=== PATIENT | female | born 1995 | race Caucasian/White ===

== ENCOUNTER 2016-05-29 16:15 | Emergency (ER) | payer OTHER ==
[~2016-05-29] VITALS: Ht 167.6 cm; Wt 51.9 kg
[2016-05-29 16:22] VITALS: Ht 167.6 cm; Wt 51.9 kg
[2016-05-29] MEDS ORDERED: SODIUM CHLORIDE 0.9% 1000ML 1,000 ML IV STA (16:30)
[2016-05-29 16:37] VITALS: O2SAT 98
[2016-05-29 16:43] VITALS: TEMP 37.1
--- NOTE | 2016-05-29 16:46 | DIAGNOSTIC IMAGING REPORT ---
HEAD CT NONCONTRAST CT DOSE: 537.48 mGy.cm HISTORY: Seizure. Evaluate Fever/Sepsis TECHNIQUE: Multiaxial CT images of the head were performed without the use of intravenous contrast. Automated exposure control was utilized for this study. Comparison: None. Findings: The paranasal sinuses and mastoid air cells are clear. The calvarium and skull base are intact. The ventricles and sulci are within normal limits. There is no mass, hematoma, midline shift, or acute infarct. Mild left parietal scalp swelling. Impression: No acute intracranial abnormality. Electronically signed by: Benjamin Ni M.D. 05/29/2016 4:44 PM Dictated Date/Time: 05/29/2016 4:39 PM
[2016-05-29 17:01] LABS: BASO % 0.6 %; BASO ABS # 0.05 K/uL (0-0.2); COMPLETE YES; EOS % 4.2 %; HEMATOCRIT 41.4 % (37-47); IG% 0.2 %; LYMPH ABS # 3.24 K/uL (1.2-3.4); MEAN CELL VOLUME 89.4 fL (80-100); MEAN CORPUSCULAR HEMOGLOBIN 29.2 pg (25-34); MEAN CORPUSCULAR HGB CONC 32.6 g/dl (32-36); MEAN PLATELET VOLUME 10.8 fL (7.4-10.4); MONO % 6.2 %; NEUT % 52.8 %; PLATELET COUNT 244 K/uL (130-400); RED BLOOD COUNT 4.63 M/uL (4.2-5.4)
[2016-05-29 17:10] LABS: ALT/SGPT 18 U/L (12-78); AST/SGOT 13 U/L (15-37); BLOOD UREA NITROGEN 10 mg/dl (7-18); CALCIUM 8.7 mg/dl (8.5-10.1); CARBON DIOXIDE 18 mmol/L (21-32); CHLORIDE 109 mmol/L (98-107); CREATININE 0.95 mg/dl (0.60-1.20); GLUCOSE 108 mg/dl (70-99); POTASSIUM 3.5 mmol/L (3.5-5.1); SODIUM 142 mmol/L (136-145)
[2016-05-29 17:17] LABS: PROTHROMBIN TIME (PATIENT) 10.5 SECONDS (9.0-12.0)
[2016-05-29 17:18] LABS: ALKALINE PHOSPHATASE 57 U/L (45-117); C-REACTIVE PROTEIN < 0.29 mg/dl (0-0.29)
[2016-05-29 17:23] LABS: ACETAMINOPHEN < 2 ug/ml (10-30)
[2016-05-29] MEDS ORDERED: ONDANSETRON INJ 2 MG/ML 2 ML VIAL ONE (17:24)
[2016-05-29] MEDS ORDERED: NURSING VERBAL MED ORDER ONE (17:30)
[2016-05-29] MEDS ORDERED: PROCHLORPERAZINE 5 MG/ML 2 ML VIAL IV STA (17:42)
[2016-05-29 17:52] LABS: URINE APPEARANCE CLOUDY (CLEAR); URINE BILIRUBIN NEG (NEG); URINE COLOR YELLOW; URINE EPITHELIAL CELL AUTO >30 /lpf (0-5); URINE NITRITE NEG (NEG); URINE PH 5.5 (4.5-7.5); URINE SPECIFIC GRAVITY 1.016 (1.000-1.030); UROBILINOGEN NEG (NEG); ZZURINE CULT IF INDIC CATH YES
--- NOTE | 2016-05-29 18:00 | DIAGNOSTIC IMAGING REPORT ---
CHEST ONE VIEW PORTABLE HISTORY: Evaluate Fever/Sepsis COMPARISON: None. FINDINGS: The patient is slightly rotated on this study. No pleural effusions. No pneumothorax. No focal lung consolidations to suggest pneumonia. No evidence for pulmonary edema. Prominence of the upper left paratracheal stripe may be due to the patient rotation. Cardiac silhouette is borderline enlarged. This may also be due to the patient rotation. IMPRESSION: 1. No definite acute process within the chest. 2. Borderline enlargement of cardiac silhouette may be due to the slightly rotated study. Electronically signed by: Benjamin Ni M.D. 05/29/2016 5:58 PM Dictated Date/Time: 05/29/2016 5:56 PM
[2016-05-29 18:07] LABS: MANUAL MICROSCOPIC REQUIRED? NO; REVIEW REQ? NO
[2016-05-29] MEDS ORDERED: CEFTRIAXONE SOD INJ 1 GM ADDVIAL IV STA (18:14)
[2016-05-29] MEDS ORDERED: ONDA4TAB10 SL (18:37)
--- NOTE | 2016-05-29 18:39 | EMERGENCY ROOM VISIT NOTE ---
History Report prepared by Saundra: Renetta Augustin Under the Supervision of: Dr. William Garza D.O. First contact with patient: 16:24 Chief Complaint: SEIZURE Stated Complaint: SEIZURE History of Present Illness The patient is a 21 year old female who presents to the Emergency Room with complaints of sudden seizure like activity that began around 1500. Per EMS, the patient was reported to have seizure like activity prior to arrival by her boyfriend. They note that the patient fell backwards last evening, striking her head off of a corner of the wall. The patient's boyfriend notes that the patient had head pain last night after the incident states that she iced the area. He additionally states that the patient took Aleve last evening. The patient's boyfriend states that the patient wasn't feeling well today, noting nausea. He denies the patient having any fever or flu-like symptoms. The patient has no seizure history and no obvious trauma was reported by EMS. The patient's boyfriend states that he and the patient had slept most of the day and around 1500 the patient began shaking, became rigid, and was drooling. He states that the episode lasted for two minutes. The patient's boyfriend states that the patient never fully woke up after the seizure. EMS reports that the patient became combative and was given 250 of Ketamine IM and a half a bag of fluid. The patient's boyfriend denies the patient using any illicit drugs. Source of History: spouse/significant other (boyfriend), EMS Onset: 1500 Position: other (global) Quality: other (seizure like activity) Timing: other (sudden) Associated Symptoms: + headache, + nausea, No fevers Note: Associated Symptoms: recent head trauma, drooling, rigid, shaking Review of Systems See HPI for pertinent positives & negatives. A total of 10 systems reviewed and were otherwise negative. Past Medical & Surgical No pertinent past medical history. Family History No pertinent family history Social History Smoking Status: Unknown if Ever Smoked Smokeless Tobacco Use: No Alcohol Use: none Marital Status: in relationship Housing Status: lives with roommate Occupation Status: employed, [employer] student Current/Historical Medications Scheduled Ondasetron Odt (Zofran Odt), 4 MG SL Q6H Allergies Coded Allergies: No Known Allergies (Unverified , 05/29/16) Physical Exam Vital Signs Date Time Temp Pulse Resp B/P Pulse Ox O2 Delivery O2 Flow Rate FiO2 05/29/16 18:27 66 17 98/64 98 Room Air 05/29/16 18:09 64 18 108/33 100 Room Air 05/29/16 17:45 77 20 97/68 96 Room Air 05/29/16 17:30 83 20 111/63 97 Room Air 05/29/16 17:09 85 17 131/71 99 Room Air 05/29/16 16:43 37.1 05/29/16 16:43 85 20 122/70 100 Room Air 05/29/16 16:37 98 Room Air 05/29/16 16:26 91 05/29/16 16:22 98 Room Air 05/29/16 16:22 85 16 113/72 98 Room Air Physical Exam CONSTITUTIONAL/VITAL SIGNS: Reviewed / noted above. GENERAL: Non-toxic in appearance. INTEGUMENTARY: Warm, dry, and Industry. HEAD: Normocephalic. EYES: Pupils are equal and responsive to light. without scleral icterus or trauma. ENT/OROPHARYNX: clear and moist. LYMPHADENOPATHY/NECK: Is supple without lymphadenopathy or meningismus. RESPIRATORY: Lungs clear and equal. CARDIOVASCULAR: Regular rate and rhythm. GI/ABDOMEN: Soft and nontender. No organomegaly or pulsatile mass. No rebound or guarding. Normal bowel sounds. EXTREMITIES: Warm and well perfused. BACK: No CVA tenderness. NEUROLOGICAL: Intact without focal deficits. PSYCHIATRIC: normal affect. MUSCULOSKELETAL: Normally developed with good muscle tone. Medical Decision & Procedures ER Provider Diagnostic Interpretation: CT results as stated below per my review and radiologist interpretation: HEAD CT NONCONTRAST CT DOSE: 537.48 mGy.cm HISTORY: Seizure. Evaluate Fever/Sepsis TECHNIQUE: Multiaxial CT images of the head were performed without the use of intravenous contrast. Automated exposure control was utilized for this study. Comparison: None. Findings: The paranasal sinuses and mastoid air cells are clear. The calvarium and skull base are intact. The ventricles and sulci are within normal limits. There is no mass, hematoma, midline shift, or acute infarct. Mild left parietal scalp swelling. Impression: No acute intracranial abnormality. Electronically signed by: Benjamin Ni M.D. 05/29/2016 4:44 PM Dictated Date/Time: 05/29/2016 4:39 PM X ray results and stated below per my interpretation and radiology interpretation. CHEST ONE VIEW PORTABLE HISTORY: Evaluate Fever/Sepsis COMPARISON: None. FINDINGS: The patient is slightly rotated on this study. No pleural effusions. No pneumothorax. No focal lung consolidations to suggest pneumonia. No evidence for pulmonary edema. Prominence of the upper left paratracheal stripe may be due to the patient rotation. Cardiac silhouette is borderline enlarged. This may also be due to the patient rotation. IMPRESSION: 1. No definite acute process within the chest. 2. Borderline enlargement of cardiac silhouette may be due to the slightly rotated study. Electronically signed by: Benjamin Ni M.D. 05/29/2016 5:58 PM Dictated Date/Time: 05/29/2016 5:56 PM Laboratory Results 05/29/16 15:50 Red Blood Count 4.63, Mean Corpuscular Volume 89.4, Mean Corpuscular Hemoglobin 29.2, Mean Corpuscular Hemoglobin Concent 32.6, Mean Platelet Volume 10.8, Neutrophils (%) (Auto) 52.8, Lymphocytes (%) (Auto) 36.0, Monocytes (%) (Auto) 6.2, Eosinophils (%) (Auto) 4.2, Basophils (%) (Auto) 0.6, Neutrophils # (Auto) 4.75, Lymphocytes # (Auto) 3.24, Monocytes # (Auto) 0.56, Eosinophils # (Auto) 0.38, Basophils # (Auto) 0.05 05/29/16 15:50 Test 05/29/16 15:50 05/29/16 16:50 05/29/16 17:06 White Blood Count 9.00 K/uL (4.8-10.8) Red Blood Count 4.63 M/uL (4.2-5.4) Hemoglobin 13.5 g/dL (12.0-16.0) Hematocrit 41.4 % (37-47) Mean Corpuscular Volume 89.4 fL (80-100) Mean Corpuscular Hemoglobin 29.2 pg (25-34) Mean Corpuscular Hemoglobin Concent 32.6 g/dl (32-36) Platelet Count 244 K/uL (130-400) Mean Platelet Volume 10.8 fL (7.4-10.4) Neutrophils (%) (Auto) 52.8 % Lymphocytes (%) (Auto) 36.0 % Monocytes (%) (Auto) 6.2 % Eosinophils (%) (Auto) 4.2 % Basophils (%) (Auto) 0.6 % Neutrophils # (Auto) 4.75 K/uL (1.4-6.5) Lymphocytes # (Auto) 3.24 K/uL (1.2-3.4) Monocytes # (Auto) 0.56 K/uL (0.11-0.59) Eosinophils # (Auto) 0.38 K/uL (0-0.5) Basophils # (Auto) 0.05 K/uL (0-0.2) RDW Standard Deviation 47.8 fL (36.4-46.3) RDW Coefficient of Variation 14.6 % (11.5-14.5) Immature Granulocyte % (Auto) 0.2 % Immature Granulocyte # (Auto) 0.02 K/uL (0.00-0.02) Erythrocyte Sedimentation Rate 4 mm/hr (0-21) Prothrombin Time 10.5 SECONDS (9.0-12.0) Prothromb Time International Ratio 1.0 (0.9-1.1) Activated Partial Thromboplast Time 24.7 SECONDS (21.0-31.0) Partial Thromboplastin Ratio 1.0 Anion Gap 15.0 mmol/L (3-11) Est Creatinine Clear Calc Drug Dose 75.5 ml/min Estimated GFR () 97.8 Estimated GFR (Non- 84.4 BUN/Creatinine Ratio 11.0 (10-20) Calcium Level 8.7 mg/dl (8.5-10.1) Magnesium Level 2.0 mg/dl (1.8-2.4) Total Bilirubin 0.5 mg/dl (0.2-1) Direct Bilirubin 0.1 mg/dl (0-0.2) Aspartate Amino Transf (AST/SGOT) 13 U/L (15-37) Alanine Aminotransferase (ALT/SGPT) 18 U/L (12-78) Alkaline Phosphatase 57 U/L (45-117) Total Creatine Kinase 125 U/L (26-192) Creatine Kinase MB 1.3 ng/ml (0.5-3.6) Creatine Kinase MB Ratio 1.0 (0-3.0) Troponin I < 0.015 ng/ml (0-0.045) C-Reactive Protein < 0.29 mg/dl (0-0.29) Total Protein 7.3 gm/dl (6.4-8.2) Albumin 4.1 gm/dl (3.4-5.0) Lipase 112 U/L (73-393) Thyroid Stimulating Hormone (TSH) 1.830 uIu/ml (0.300-4.500) Salicylates Level 2.3 mg/dl (2.8-20) Acetaminophen Level < 2 ug/ml (10-30) Urine Color YELLOW Urine Appearance CLOUDY (CLEAR) Urine pH 5.5 (4.5-7.5) Urine Specific [place] 1.016 (1.000-1.030) Urine Protein 1+ (NEG) Urine Glucose (UA) NEG (NEG) Urine Ketones NEG (NEG) Urine Occult Blood 2+ (NEG) Urine Nitrite NEG (NEG) Urine Bilirubin NEG (NEG) Urine Urobilinogen NEG (NEG) Urine Leukocyte Esterase MODERATE (NEG) Urine WBC (Auto) >30 /hpf (0-5) Urine RBC (Auto) >30 /hpf (0-4) Urine Hyaline Casts (Auto) 1-5 /lpf (0-5) Urine Epithelial Cells (Auto) >30 /lpf (0-5) Urine Bacteria (Auto) NEG (NEG) Urine Test NEG (NEG) Urine Opiates Screen NEG (NEG) Urine Methadone, Qualitative NEG (NEG) Urine Barbiturates NEG (NEG) Urine Phencyclidine (PCP) Level NEG (NEG) Ur Amphetamine/Methamphetamine NEG (NEG) MDMA (Ecstasy) Screen NEG (NEG) Urine Benzodiazepines Screen NEG (NEG) Urine Cocaine Metabolite NEG (NEG) Urine Marijuana (THC) POS (NEG) Ethyl Alcohol mg/dL < 3.0 mg/dl (0-3) Laboratory results as stated above per my review. Medications Administered Medications (Trade) Dose Ordered Sig/Dayday Route Start Time Stop Time Status Last Admin Dose Admin Sodium Chloride (Nss 1000ml) 1,000 ml @ 999 mls/hr Q1H1M STAT IV 05/29/16 16:30 05/29/16 17:30 DC 05/29/16 16:51 999 MLS/HR Ondansetron HCl (Zofran Inj) 4 mg STK-MED ONCE .ROUTE 05/29/16 17:24 05/29/16 17:26 DC 05/29/16 17:27 4 MG Prochlorperazine Edisylate (Compazine Inj) 5 mg NOW STAT IV 05/29/16 17:42 05/29/16 17:43 DC 05/29/16 17:47 5 MG Ceftriaxone Sodium (Rocephin Inj) 1 gm NOW STAT IV 05/29/16 18:14 05/29/16 18:15 DC 05/29/16 18:32 1 GM ECG Indication: other (seizure) Rate (beats per minute): 83 Rhythm: normal sinus Findings: no acute ischemic change, no ectopy ED Course 1620: Previous medical records were reviewed. The patient was evaluated in room B1. A complete history and physical examination was performed. 1630: Ordered Sodium Chloride 1000 ml @ 999 mls/hr IV. 1724: Per nursing staff, the patient is dry heaving. Ordered Zofran Inj 4 mg .route 1738: I reevaluated the patient and she is talking, but dry heaving. 1742: Ordered Compazine Inj 5 mg IV. Medical Decision Differential diagnosis: Etiologies such as metabolic, infection, hypoglycemia, electrolyte abnormalities , cardiac sources, intracerebral event, toxicologic, neurologic, as well as others were entertained.. Based on the boyfriend's description, the patient appears to have had a 1-1/2-2 minute seizure of tonic-clonic nature. She did strike her head last night when she fell backwards in a chair. She was not complaining of much pain. The patient's exam does suggest that she bit the left anterior tongue. There was no bleeding related to this. There is just a contusion there. The patient was brought here by EMS. Her postictal period was reportedly combative and she was given ketamine IM by EMS in route here. She was, my initial evaluation although had roving eye movements. She reportedly had movement of all 4 extremities prior to the ketamine as well as clear verbal interaction with combativeness. The patient did have fecal incontinence. Her laboratory studies revealed a normal CBC and troponin. CRP is normal. Sedimentation rate was negative. TSH is normal. Metabolic panel was unremarkable. A CT scan of the brain did not show acute disease. Chest x-ray was unremarkable. test is negative. Urine did not show obvious infection at appears to be contaminated. She was given 1 dose of IV Rocephin for this. We will await cultures. Alcohol is negative. Tylenol is negative. Tox screen was positive for marijuana. The patient was treated here with IV fluids as well as IV Rocephin, IV Zofran and IV Compazine. She was discharged with Zofran home pack and prescription for Zofran. She was told to follow-up with Dr. Morejon from neurology. She states that she does not drive. She does not have a vehicle. The patient would like to be discharged. She is felt to be stable for discharge at this time. Impression Primary Impression: New onset seizure Scribe Attestation The scribe's documentation has been prepared under my direction and personally reviewed by me in its entirety. I confirm that the note above accurately reflects all work, treatment, procedures, and medical decision making performed by me. Departure Information Dispostion Home / Self-Care Prescriptions Ondasetron Odt (ZOFRAN ODT) 4 Mg Tab 4 MG SL Q6H for Nausea, #10 TAB Prov: William Garza, Pretty.[email or web address]. 05/29/16 Referrals No Doctor, Assigned (PCP) Sujey Nam M.D. Patient Instructions ED Seizure New Onset Unk Cause, My [facility] Additional Instructions Do not drive until evaluated by neurology. Contact Dr. Morejon's office tomorrow and schedule a follow-up appointment. Return to the emergency department for any new or worsening symptoms or recurrent seizure. Take Tylenol as needed for headache. Zofran: Allow one tablet to dissolve under the tongue every 6 hours as needed for nausea or vomiting.
[2016-05-29 18:42] LABS: BENZODIAZEPINE, URINE NEG (NEG); COCAINE,URINE NEG (NEG); PHENCYCLIDINE, URINE NEG (NEG)
[2016-05-29] MEDS ORDERED: ONDANSETRON HOME PACK 4MG OD TAB PO ONE (19:00)
[2016-05-29 19:10] VITALS: BP 110/64; PULSE 67; O2SAT 96
== END 2016-05-29 19:10 | disposition home or self-care (01) ==
LOC: EDBD 16:15 → C.EDB 16:17
DX: R56.9 Unspecified convulsions (principal)